=== PATIENT | female | born 1945 | race Caucasian/White ===

== ENCOUNTER → 2016-07-15 | Outpatient (REF) | payer MEDICARE ==
[~2016-07-15] MED LIST: BUPR10TASR PO; BUPR1TAB17 PO; CALCIUM PO; COUM2.5T11 PO; FLEEENE4 PR; GARLIC OIL PO; HYDR25OI PR; IBUP-1114 PO; IRON1TAB PO; LISI10TA4 PO; LOVA40TA PO; MAGNESIUM PO; MILKSUS PO; MIRA33504 PO; POTASSIUM PO; PROTANDEM PO; TYLE325T5 PO; ULTR50TA PO; VITA500C24 PO; VITATAB73 PO
[2016-07-15 18:25] LABS: MEAN CORPUSCULAR HEMOGLOBIN 32.1 pg (27.0-33.0); MEAN CORPUSCULAR HGB CONC 33.1 g/dl (32.0-36.5); MEAN CORPUSCULAR VOLUME 96.8 fl (80.0-96.0); RED CELL DISTRIBUTION WIDTH 12.4 % (11.5-14.5)
[2016-07-15 20:18] LABS: ALBUMIN 3.8 GM/DL (3.2-5.2); ALBUMIN/GLOBULIN RATIO 1.23 (1.00-1.93); ALKALINE PHOSPHATASE 104 U/L (45-117); ALT/SGPT 29 U/L (12-78); ANION GAP 7 MEQ/L (8-16); AST/SGOT 19 U/L (15-37); BILIRUBIN,TOTAL 0.8 MG/DL (0.2-1.0); BLOOD UREA NITROGEN 12 MG/DL (7-18); CALCIUM LEVEL 8.8 MG/DL (8.8-10.2); CARBON DIOXIDE LEVEL 30 MEQ/L (21-32); CHLORIDE LEVEL 105 MEQ/L (98-107); CHOLESTEROL LEVEL 209 MG/DL (<200); CREATININE FOR GFR 0.71 MG/DL (0.55-1.02); FERRITIN 35 NG/ML (8-252); GLOMERULAR FILTRATION RATE > 60.0 (>39); GLUCOSE, FASTING 98 MG/DL (83-110); PERCENT SATURATION 32.2 % (13.2-37.4); POTASSIUM SERUM 3.9 MEQ/L (3.5-5.1); SODIUM LEVEL 142 MEQ/L (136-145); TOTAL IRON BINDING CAPACITY 397 UG/DL (250-450); TOTAL PROTEIN 6.9 GM/DL (6.4-8.2); TRIGLYCERIDES LEVEL 80 MG/DL (<150)
== END ==
LOC: M SFHCCLAY 12:03
PROVIDERS: ATTEND Nurse Practitioner
DX: D50.9 Iron deficiency anemia, unspecified (principal); E78.2 Mixed hyperlipidemia

== ENCOUNTER → 2016-08-11 | Outpatient (CLI) | payer MEDICARE ==
[~2016-08-11] MED LIST changes: +MULT1TAB10 PO; +PERC5TAB6 PO; +VITA100066 PO; +VITATAB11 PO
--- NOTE | 2016-08-11 13:33 | REP ---
PA and lateral chest: Comparison is 09/04/2014. Lung wing are clear except at the posterior sulci are mildly effaced on the lateral view. This is stable and unchanged. This could represent pleural adhesions or a tiny pleural effusions. Cardiac size is normal. The gurinder and mediastinum are unremarkable. There is scoliosis convex right at the thoracolumbar junction, unchanged. There are surgical clips and now right upper quadrant. There are metallic surgical skin tamika in the anterior abdominal wall, unchanged. Impression: No interval change. Slight effacement of the posterior sulci on the lateral view (tiny pleural effusions versus pleural effusions, unchanged). Scoliosis convex right at the thoracolumbar junction. Signed by Geronimo Díaz MD 08/11/2016 01:25 P
[2016-08-11 14:12] LABS: ALBUMIN 3.6 GM/DL (3.2-5.2); ALBUMIN/GLOBULIN RATIO 1.16 (1.00-1.93); ALKALINE PHOSPHATASE 103 U/L (45-117); ALT/SGPT 27 U/L (12-78); ANION GAP 6 MEQ/L (8-16); AST/SGOT 19 U/L (15-37); BILIRUBIN,TOTAL 0.7 MG/DL (0.2-1.0); BLOOD UREA NITROGEN 10 MG/DL (7-18); CARBON DIOXIDE LEVEL 30 MEQ/L (21-32); CHLORIDE LEVEL 105 MEQ/L (98-107); CREATININE FOR GFR 0.64 MG/DL (0.55-1.02); GLOMERULAR FILTRATION RATE > 60.0 (>39); GLUCOSE, FASTING 94 MG/DL (83-110); POTASSIUM SERUM 4.1 MEQ/L (3.5-5.1); SODIUM LEVEL 141 MEQ/L (136-145); TOTAL PROTEIN 6.7 GM/DL (6.4-8.2)
[2016-08-11 14:15] LABS: INR 0.97
[2016-08-11 14:21] LABS: MEAN CORPUSCULAR HEMOGLOBIN 32.3 pg (27.0-33.0); MEAN CORPUSCULAR HGB CONC 33.6 g/dl (32.0-36.5); MEAN CORPUSCULAR VOLUME 96.3 fl (80.0-96.0)
--- NOTE | 2016-08-11 21:56 | ECGEPIP ---
Stationary ECG Study [facility] Test Date: 2016-08-11 Pat Name: KIKO CORNEJO Department: Room: - Gender: F Senior Database Engineer: RF : [id number] Requested By: Osmin Tam Order Number: [id number] Reading MD: Vinicio Collado Measurements Intervals [place] Rate: 61 P: 37 NC: 173 QRS: 47 QRSD: 99 T: 51 QT: 395 QTc: 400 Interpretive Statements SINUS RHYTHM MODERATE ST DEPRESSION T waves in inferior leads normalized when compared to tracing from 09-04-14 Electronically Signed On 08-11-2016 21:55:46 EDT by Vinicio Collado
== END ==
LOC: M ADMPAT 11:02
PROVIDERS: ATTEND Orthopaedic Surgery
DX: Z01.818 Encounter for other preprocedural examination (principal); M17.11 Unilateral primary osteoarthritis, right knee; Z79.01 Long term (current) use of anticoagulants

== ENCOUNTER 2016-08-18 12:03 | Inpatient (IN) | payer MEDICARE ==
[2016-08-11 11:34] VITALS: BP 110/64
--- NOTE | 2016-08-14 11:10 | HPE ---
DATE OF ANTICIPATED ADMISSION: 08/18/2016 ATTENDING PHYSICIAN: Dr. Osmin Tam. CHIEF COMPLAINT: Right knee pain and stiffness. HISTORY: Patient is a pleasant 71-year-old female presenting with persistent right knee pain and stiffness. She has failed to improve with conservative measures. She continues to have pain with weight bearing activities and activities of daily living. She has consented for elective right total knee arthroplasty with Dr. Tam. Patient's primary care medical clearance with Dr. Jack was received and reviewed during appointment. PAST MEDICAL HISTORY: Iron deficiency anemia. Hypertension. Hyperlipidemia. Depression. PAST SURGICAL HISTORY: Bilateral carpal tunnel release. Right knee arthroscopy. Left total knee arthroplasty. Right foot surgery. Conization of the cervix. Tonsillectomy. Gastric stapling. CURRENT MEDICATIONS: - aspirin 81 mg daily - lisinopril 10 mg daily - lovastatin 40 mg daily - Wellbutrin 75 mg daily - hydrocortisone cream - iron supplements - vitamin D supplements - vitamin B complex ALLERGIES: PENICILLIN. SOCIAL HISTORY: Patient is a current smoker. Uses 5 cigarettes or less per day. She does not use alcohol. REVIEW OF SYSTEMS: Patient denies fevers, chills, nausea, vomiting or diarrhea. She denies any chest pain, shortness of breath, lightheadedness or headache. She denies any recent upper respiratory or urinary tract infection symptoms. She does have continued pain in the right knee with weightbearing activities. EXAM: Well nourished, well developed female in no apparent distress. Heart: Regular rate and rhythm. Lungs: Clear to auscultation bilaterally. Abdomen: Bowel sounds are present. Abdomen is soft and nontender to palpation. Neck: Supple without lymphadenopathy or jugular venous distention. Musculoskeletal: Inspection of the right knee revealed no gross abnormalities. There is tenderness to palpation along the medial joint line. Patient does have essentially full motion of the right knee with 5/5 strength of the right lower extremity. No hip irritability was elicited with range of motion. Her calf is soft, nontender to palpation with no palpable cords noted. Distally she is neurovascularly intact. Vital signs: Height 4 feet 11-1/4 inches, weight 157 pounds, temperature 98, blood pressure 128/68, heart rate 76, respirations 16. LABORATORY DATA: Chest x-ray: No interval change. Slight effacement of the posterior sulci on the lateral view. Tiny pleural effusions versus purpura effusions, unchanged. Scoliosis convex right at the thoracolumbar junction. EKG: Sinus rhythm. Moderate ST depression. T waves from inferior leads normalized when compared to previous tracing. Comprehensive metabolic profile: Fasting glucose 94, BUN 10, creatinine for glomerular filtration rate 0.64, glomerular filtration rate greater than 60. Sodium 141, potassium 4.1, chloride 105, carbon dioxide 30, anion gap decreased 6, calcium 9.0, AST 19, ALT 27, alkaline phosphatase 103, total bilirubin 0.7, total protein 6.7, albumin 3.6, albumin globulin ratio 1.16. Complete blood count: WBC 7.0, WBC 4.70, hemoglobin 15.1, hematocrit 45.2, platelets 259. Erythrocyte sedimentation rate 30, prothrombin time 13, INR 0.97. Urine analysis is negative with no growth noted on urine culture. Nasal and sinus culture show normal david. IMPRESSION: Right knee osteoarthritis with x-rays notable for end stage degenerative changes. PLAN: Patient has consented for a elective right total knee arthroplasty with Dr. Tam. LOU
[~2016-08-18] VITALS: Ht 148.6 cm; Wt 73.0 kg
[~2016-08-18 12:03] MED LIST changes: -PERC5TAB6 PO
[2016-08-18] MEDS ORDERED: LR 1,000 ML IV ONE (12:15)
[2016-08-18] MEDS ORDERED: CLINDAMYCIN 600 MG in APPROPRIATE DILUENT 1 EA IV ONE (12:15)
[2016-08-18] MEDS ORDERED: fentaNYL 100 MCG/2 ML INJECTION (J3010) As Ordered ONE ×4 (12:51→15:00)
[2016-08-18] MEDS ORDERED: MIDAZOLAM INJ 2 MG/2 ML VIAL (J2250) As Ordered ONE ×2 (12:51→13:38)
[2016-08-18] MEDS ORDERED: BUPIVACAINE HCL 0.25% 30 ML VIAL As Ordered ONE (13:00)
[2016-08-18] MEDS ORDERED: EPINEPHrine INJ 1 MG/ML 1ML AMP As Ordered ONE (13:01)
[2016-08-18] MEDS ORDERED: CLINDAMYCIN INJ 900MG/6ML VIAL As Ordered ONE (13:01)
[2016-08-18] MEDS ORDERED: TRANEXAMIC ACID 100 MG/ML 10ML VIAL As Ordered ONE (13:23)
[2016-08-18] MEDS ORDERED: fentaNYL 100 MCG/2 ML INJECTION (J3010) IV ONE (14:00)
[2016-08-18] MEDS ORDERED: MIDAZOLAM INJ 2 MG/2 ML VIAL (J2250) IV ONE (14:00)
--- NOTE | 2016-08-18 14:14 | IPN ---
DATE OF SERVICE: 08/18/2016 The patient seen and examined. She wished to go ahead with a right knee replacement. She does have some valgus alignment, so I would suggest a posterior stabilized knee, and I believe that is what Dr. Case did on the other side. She wished to go ahead with a right total knee arthroplasty. She understands the nature of the procedure, the risks of bleeding, infection, damage to nerves and vessels, persistent pain, wear loosening, blood clots, medical problems, , among others. She understands that I use a DePuy knee system, which is likely different than the component Dr. Case used, and she wished to proceed. A medical clearance was obtained.
[2016-08-18] MEDS ORDERED: ONDANSETRON 4MG/2ML VIAL (J2405) As Ordered ONE ×2 (15:17→16:19)
[2016-08-18] MEDS ORDERED: dexameTHASONE 4 MG/ML 1ML VIAL (J1100) As Ordered ONE (15:17)
[2016-08-18] MEDS ORDERED: MORPHINE 1MG/ML IN 0.9% NACL 100ML IV BAG As Ordered ONE (15:50)
[2016-08-18] MEDS ORDERED: ONDANSETRON 4MG/2ML VIAL (J2405) IV PRN ×3 (16:30→16:45)
[2016-08-18] MEDS ORDERED: LR 1,000 ML IV SCH ×2 (16:30)
[2016-08-18] MEDS ORDERED: ACETAMINOPHEN TAB 650MG DOSE (2X325MG) PO PRN (16:30)
[2016-08-18] MEDS ORDERED: FLEET ENEMA PR PRN (16:30)
[2016-08-18] MEDS ORDERED: fentaNYL 100 MCG/2 ML INJECTION (J3010) IV PRN (16:30)
[2016-08-18] MEDS ORDERED: MORPHINE 1MG/ML IN 0.9% NACL 100ML IV BAG IV PRN (16:45)
[2016-08-18] MEDS ORDERED: NALBUPHINE HCL 10 MG/ML AMP (J2300) IV PRN (16:45)
[2016-08-18] MEDS ORDERED: EPIDURAL/PCA KEYS XX PRN (16:45)
[2016-08-18] MEDS ORDERED: PATIENT IS CURRENTLY ON AN ON-Q PAIN BUSTER PAIN RELIEF SYSTEM XX SCH (16:45)
[2016-08-18] MEDS ORDERED: NALOXONE INJ 0.4 MG/1 ML VIAL (J2310) IV PRN (16:45)
[2016-08-18] MEDS ORDERED: diphenhydrAMINE INJ 50MG/ML VIAL (J1200) IV PRN (16:45)
[2016-08-18 17:00] VITALS: BP 125/81
[2016-08-18 17:30] VITALS: BP 177/90
[2016-08-18 18:30] VITALS: BP 161/88
[2016-08-18] MEDS ORDERED: WARFARIN SOD 5 MG TAB PO ONE (18:45)
[2016-08-18 19:30] VITALS: BP 124/70
--- NOTE | 2016-08-18 19:55 | CR.PDOC ---
[facility] Consultation Consultation HOSPITALIST CONSULT NOTE Date of consult: 08/18/2016 Referring Provider: Dr. Tam PCP: Daisy Napier NP at [place] Reason for Consult: Medical management HPI: 71-year-old female with hypertension, hyperlipidemia, iron deficiency anemia, depression/seasonal affective disorder who underwent right total knee arthroplasty today with Dr. Tam. She is seen postoperatively. She denies any chest pain or difficulty breathing. She does however note that initially after the surgery she was nauseated, but she states that she feels well now and was able to eat dinner without any difficulty. Past medical history: Hypertension, hyperlipidemia, iron deficiency anemia, depression/seasonal affective disorder Past surgical history: Bilateral carpal tunnel release, bilateral total knee arthroplasty, right foot surgery, conization of the cervix, tonsillectomy, gastric stapling, multiple D&Cs Family history: Depression, hypertension, hyperlipidemia Social history: The patient states that she smokes socially several times weekly. She has been a recreational marijuana user since she was 21 years old. She does not drink any alcohol. Allergies: Penicillin, tape Review of systems: General: Negative for fever and chills Eyes: Negative for vision changes and ocular discharge ENT: Negative for sore throat and nose bleed Cardiovascular: Negative for chest pain and palpitations Respiratory: Negative for cough and shortness of breath GI: Positive for nausea, negative for vomiting, diarrhea, constipation Musculoskeletal: Positive for chronic back pain Skin: Negative for rash Neuro: Negative for headache, dizziness, numbness, tingling Psych: Negative for depression and suicidal ideation Endocrine: Negative for polyuria : Negative for dysuria Heme: Negative for bleeding Home meds: See below Physical exam: Vital signs: Vital Sign - Last 24 Hours 08/18/16 08/18/16 08/18/16 08/18/16 12:40 12:58 13:00 13:05 Temp 99.5 Pulse 72 62 61 60 Resp 18 18 18 18 B/P (MAP) 149/70 (96) 134/59 (84) 118/62 (80) 116/63 (80) Pulse Ox 94 98 98 97 O2 Delivery Room Air Nasal Cannula Nasal Cannula Nasal Cannula O2 Flow Rate 2 2 3 08/18/16 08/18/16 08/18/16 08/18/16 13:10 13:15 13:20 13:25 Pulse 59 58 59 60 Resp 16 16 16 16 B/P (MAP) 109/61 (77) 108/61 (77) 113/65 (81) 102/56 (71) Pulse Ox 98 97 97 97 O2 Delivery Nasal Cannula Nasal Cannula Nasal Cannula Nasal Cannula O2 Flow Rate 3 3 3 3 08/18/16 08/18/16 08/18/16 08/18/16 13:30 13:35 13:45 14:00 Pulse 62 57 55 57 Resp 16 16 16 16 B/P (MAP) 113/61 (78) 101/58 (72) 102/59 (73) 107/56 (73) Pulse Ox 98 97 98 98 O2 Delivery Nasal Cannula Nasal Cannula Nasal Cannula Nasal Cannula O2 Flow Rate 3 3 3 3 08/18/16 08/18/16 08/18/16 08/18/16 14:10 15:57 16:08 16:21 Temp 97.6 97.5 Pulse 54 74 66 70 Resp 16 16 16 16 B/P (MAP) 107/57 (74) 170/74 (106) 177/69 (105) 190/88 (122) Pulse Ox 98 98 99 99 O2 Delivery Nasal Cannula Nasal Cannula Nasal Cannula Nasal Cannula O2 Flow Rate 3 3 3 3 08/18/16 08/18/16 08/18/16 08/18/16 16:32 16:50 17:00 17:30 Temp 97.6 98.2 96.7 Pulse 64 60 59 65 Resp 16 16 18 14 B/P (MAP) 179/91 (120) 155/78 (103) 125/81 (96) 177/90 (119) Pulse Ox 100 99 98 100 O2 Delivery Nasal Cannula Nasal Cannula Nasal Cannula Nasal Cannula O2 Flow Rate 3 3 2.0 2.0 08/18/16 18:30 Temp 97.1 Pulse 66 Resp 13 B/P (MAP) 161/88 (112) Pulse Ox 99 O2 Delivery Nasal Cannula O2 Flow Rate 2.0 Gen.: awake, alert, no acute distress Eyes: Extraocular movements intact, normal sclera ENT: Moist mucous membranes Cardiovascular: RRR, no murmurs rubs or gallops Lungs: clear to auscultation bilaterally, no rales, rhonchi, or wheeze Abdomen: Soft, NT/ND, normal BS Extremities: Intact pedal pulses bilaterally Neuro: alert and oriented 3, normal speech, no focal deficits Psych: Normal mood with congruent affect Labs and radiology: See below None to review Assessment and plan: 71-year-old female with hypertension, hyperlipidemia, iron deficiency anemia, depression/seasonal affective disorder who underwent right total knee arthroplasty today with Dr. Tam. We have been consulted for medical management. 1. Hypertension: Continue home YVETTE inhibitor 2. Hyperlipidemia: Continue home statin. 3. Depression/seasonal affective disorder: Continue home Wellbutrin. 4. Iron deficiency anemia: We will check a hemoglobin in the morning DVT prophylaxis: As per her surgical team Thank you for this consult. We will continue to follow along with you. Dr. Kelley and the family medicine team will assume care in the morning. Vital Signs/I&O Vital Signs Date Time Temp Pulse Resp B/P (MAP) Pulse Ox O2 Delivery O2 Flow Rate FiO2 08/18/16 18:30 97.1 66 13 161/88 (112) 99 Nasal Cannula 2.0 Allergies Coded Allergies: TAPE (Unverified Allergy, Intermediate, rash, 08/18/16) Penicillins (Verified Allergy, Unknown, 08/18/16) Home Medications Scheduled (Iron) 45 Mg Tab, 45 MG PO DAILY, (Reported) B1/B2/B3/B5/B6 (Vitamin B Complex) 1 Tab Tab, 1 TAB PO DAILY, (Reported) Bupropion Hcl (Wellbutrin Sr) 100 Mg Tabsr, 75 MG PO BID, (Reported) Cholecalciferol (Vitamin D) 1,000 Unit Tab, 1,000 UNIT PO DAILY, (Reported) Lisinopril (Lisinopril) 10 Mg Tab, 10 MG PO DAILY, (Reported) Lovastatin (Lovastatin) 40 Mg Tab, 40 MG PO DAILY, (Reported) Multivitamins (Multivitamin Adults) 1 Tab Tab, 1 TAB PO DAILY, (Reported) Scheduled PRN Acetaminophen (Tylenol) 325 Mg Tab, 650 MG PO Q4HP PRN for TEMP, (Reported) Hydrocortisone (Hydrocortisone 2.5%) 30 Gm Oint, 0 NV for HEMORRHOIDS, (Reported ) ELVA VALDEZ Aug 18, 2016 19:55
[2016-08-18 20:30] VITALS: BP 131/60
[2016-08-18] MEDS: buPROPion 75 MG TAB PO SCH (20:41)
[2016-08-18] MEDS ORDERED: WARFARIN SOD 5 MG TAB PO SCH (21:00)
[2016-08-18 21:30] VITALS: BP 120/67
[2016-08-18] MEDS: CLINDAMYCIN 600 MG in APPROPRIATE DILUENT 1 EA IV SCH (22:52)
[2016-08-19 01:30] VITALS: BP 115/59
[2016-08-19 05:30] VITALS: BP 131/65
[2016-08-19] MEDS: CLINDAMYCIN 600 MG in APPROPRIATE DILUENT 1 EA IV SCH (06:17)
[2016-08-19] MEDS ORDERED: ONDANSETRON 4 MG TAB (S0181) PO PRN (06:45)
[2016-08-19 06:50] LABS: BASO % 0.1 % (0.0-1.0); EOS % 0.3 % (0.0-3.0); LARGE UNSTAINED CELL # 0.1 K/mm3 (0.0-0.4); LARGE UNSTAINED CELL % 0.9 % (0.0-4.0); LYMPH # 1.2 K/mm3 (1.5-4.5); LYMPH % 10.9 % (24.0-44.0); MEAN CORPUSCULAR HEMOGLOBIN 31.7 pg (27.0-33.0); MEAN CORPUSCULAR HGB CONC 33.3 g/dl (32.0-36.5); MEAN CORPUSCULAR VOLUME 95.4 fl (80.0-96.0); MONO # 0.6 K/mm3 (0.0-0.8); MONO % 5.5 % (0.0-5.0); NEUTROPHILS # 8.7 K/mm3 (1.8-7.7); NEUTROPHILS % 82.3 % (36.0-66.0); PLATELET COUNT, AUTOMATED 184 k/mm3 (150-450); RED CELL DISTRIBUTION WIDTH 12.2 % (11.5-14.5); WHITE BLOOD COUNT 10.6 K/mm3 (4.0-10.0)
--- NOTE | 2016-08-19 06:50 | RO ---
DATE OF PROCEDURE: 08/18/2016 PREOPERATIVE DIAGNOSIS: Right knee osteoarthritis. POSTOPERATIVE DIAGNOSIS: Right knee osteoarthritis. PROCEDURE: Right total knee arthroplasty using a PFC rotating platform posterior stabilized size 3 femur, size 3 tibia tray, 10 polyethylene, 32 patellar button. SURGEON: Dr. Osmin Tam. EXERCISE INSTRUCT: Reuben Davidson. ANESTHESIA: Spinal. ESTIMATED BLOOD LOSS: Less than 50. COMPLICATIONS: None. INDICATIONS: This is a 71-year-old woman who has had some gradually worsening right knee pain. She had a previous left knee replacement done by Dr. Case and was happy with that and she wished to go ahead and get the right knee replaced. She is having pain to the point where she could not function with regular activities. She had failed conservative management. X-ray showed significant arthritis. She understood the nature of this, the risk of bleeding, infection, damage to nerves, vessels, persistent pain, wear, loosening, blood clots, medical problems, among others. PROCEDURE: The patient was taken to the operating room and placed in supine position after spinal anesthesia was induced. She had had a preoperative block. We prepped and draped the right lower extremity in the usual fashion. When I tested her spinal, she actually felt some pain so she was put to sleep at that point. Time-out had been performed. I made a longitudinal incision over the anterior aspect of the knee and sharp dissection was carried down to subcutaneous tissue. I performed a medial parapatellar arthrotomy per routine, everted the patella and flexed the knee up. She had extensive arthritis on the end of her femur primarily with significant osteophytes. She had significant wear on her trochlea and significant osteophytes on the end of her femur as well, and she also had a fairly valgus femur. I used the canal initiating reamer followed by the intramedullary guide set at 7 degrees of valgus and 10 mm cut and this was pinned in place by the assistant cook. The distal femoral cut was made. I then sized the femur to be a 3. I then put the external rotation block, put the pins in place. It was noted that her bone was really quite thin. The 4-in-1 cutting block was then secured to the femur and remaining four cuts were made. At this point, the PCL and the ACL had been removed with the cautery, controlling hemostasis with cautery. I put the posterior retractor and then put the tibial alignment guide on and pinned this in place at the appropriate amount of posterior slope and valgus. This was secured down and the pin holes were placed 10 mm off the high side which seemed to be the most appropriate thickness of cut. The excess bone was removed. We then used this tissue manometer technician, used it to remove soft tissues and osteophytes from either side of the knee. We had protected the soft tissues at all times during saw cuts. The box cut was then made and I elected to go with posterior stabilized because of her significant valgus and I felt it would be easier to balance her tissues. The box cutting block was then secured to the end of the femur and the remaining three cuts were made with the oscillating saw. I then placed the actual femoral component which fit very well. The size 3 posterior stabilized and prepared the tibia. The size 3 tray fit very nicely. This was pinned in place, broached and drilled and trial components were used. I had used the 10 spacer block prior to this with the components out and that seemed to have excellent fit in flexion/extension, excellent alignment and excellent stability. Slit size 10 polyethylene was inserted with posterior stabilized component and put the knee through a range of motion. There was excellent stability, excellent alignment, very pleased with the soft tissue balance and position of the components. I then removed osteophytes from around the patella and freehand cut the patella removing about 7 mm of bone and then sized it to be a 32 button which was then drilled and then placed as a trial, put the knee through range of motion. It tended to track a little more laterally than I would like so I did a mild lateral release of the retinaculum and this made the patella track quite normally. I then removed the trial components. The assistant cook prepared the bone cement in a modern technique. I made sure all remaining osteophytes were removed. I irrigated copiously and dried the bony surfaces, cemented on the tibial tray, cemented on the femoral component and removed excess bone cement. Those fit very nicely. I then put the 10 polyethylene posterior stabilized by size 3 and reduced the knee, put the knee out into extension and the patella was cemented in place, held in place with a clamp. Copious irrigation was again performed as I had multiple times prior to this. I also placed the TXA solution. I closed the deep layer with interrupted #1 Vicryl sutures realigning the soft tissues. I then removed the patellar clamp and made the remaining closure with running Stratafix suture in each direction starting at the midportion. The assistant cook and I worked in opposite directions. I then put the knee through range of motion. Again I was very pleased with the watertight closure and the stability and alignment of the knee. I irrigated, closed subcu with #2-0 Vicryl, skin with tamika. We did place a PainBuster catheter through the superolateral aspect of the knee and primed that with 10 mL of Marcaine. This was secured to the side of the thigh in the usual fashion. A sterile dressing was applied. Tourniquet was deflated. She was taken to recovery room in stable condition. There were no known complications. The plan will be routine postop. The assistant cook was instrumental in holding retractors and assisting with closure and mixing the bone cement.
[2016-08-19 06:54] LABS: INR 1.16
[2016-08-19 07:16] LABS: ANION GAP 5 MEQ/L (8-16); BLOOD UREA NITROGEN 6 MG/DL (7-18); CALCIUM LEVEL 8.3 MG/DL (8.8-10.2); CARBON DIOXIDE LEVEL 30 MEQ/L (21-32); CHLORIDE LEVEL 103 MEQ/L (98-107); CREATININE FOR GFR 0.59 MG/DL (0.55-1.02); GLOMERULAR FILTRATION RATE > 60.0 (>39); GLUCOSE, FASTING 117 MG/DL (83-110); MAGNESIUM LEVEL 1.8 MG/DL (1.8-2.4); SODIUM LEVEL 138 MEQ/L (136-145)
[2016-08-19] MEDS: MIRALAX *UNIT DOSE* 17GM PACKET PO SCH (09:00)
--- NOTE | 2016-08-19 09:22 | REP ---
AP AND LATERAL RIGHT KNEE, TWO VIEWS: HISTORY: Knee replacement. The patient is status post right total knee replacement. There is no acute fracture or dislocation. A small amount of subcutaneous air and surgical tamika are present in the overlying soft tissue. IMPRESSION: The patient is status post right total knee replacement. There is anatomic alignment. Signed by Richard Ibrahim MD 08/19/2016 09:53 A
[2016-08-19] MEDS: LISINOPRIL 10 MG TAB PO SCH (09:47)
[2016-08-19] MEDS: MULTIVITAMINS/MINERALS THERAP 1 TAB PO SCH (09:47)
[2016-08-19] MEDS: SIMVASTATIN 40 MG TAB PO SCH (09:47)
[2016-08-19] MEDS: buPROPion 75 MG TAB PO SCH ×2 (09:47→20:02)
[2016-08-19] MEDS: MOM 30ML SUSPENSION UDC PO SCH (09:48)
[2016-08-19] MEDS: SENOKOT S TAB PO SCH ×2 (09:48→20:02)
[2016-08-19 10:00] VITALS: BP 131/63
[2016-08-19] MEDS: PERCOCET 5MG/325MG TAB PO PRN ×3 (10:49→20:02)
--- NOTE | 2016-08-19 12:09 | IPNPDOC ---
Subjective Date Seen The patient was seen on 08/19/16. Subjective Chief Complaint/HPI The patient is a 71-year-old female admitted with a reason for visit of Right Knee Arthritis. Events since last encounter Med consult for RIGHT TKA. FOllows with Daisy parnell NP. denies c/o. Pulmonary: Denies: Dyspnea, Cough Cardiovascular: Denies: Chest Pain, Palpitations, Orthopnea, Paroxysmal Noc. Dyspnea, Lt Headedness Objective Physical Examination General Exam: Positive: Alert, No Acute Distress Eye Exam: Positive: PERRLA, Conjunctiva & lids normal, EOMI, Negative: Sclera icteric Neck Exam: Positive: Supple, Negative: JVD, thyromegaly Chest Exam: Positive: Clear to auscultation, Normal air movement Heart Exam: Positive: Rate Normal, Regular Rhythm, Normal S1, Normal S2, Negative: Murmurs, Rubs Abdomen Exam: Positive: Normal bowel sounds, Soft, Negative: Tenderness, Hepatospenomegaly Female Exam: Positive: Nl Ext Genitalia, Negative: Lesions, Discharge, Odor, Tenderness Skin Exam: Positive: Nl turgor and temperature, Negative: Rash, Breakdown Assessment /Plan Problems (1) Osteoarthritis of right knee Problem Specific Plan: Consult Specialist, Monitor Clinically Problem Text: NCOG following, managing warfarin. (2) HTN (hypertension) Status: Chronic Response to Treatment: Stable Problem Specific Plan: Monitor Clinically Problem Text: on home dose of Lisinopril. BP stable. (3) Hyperlipidemia Status: Chronic Response to Treatment: Stable Problem Specific Plan: Monitor Clinically (4) Chronic depression not affecting current episode of care Status: Chronic Response to Treatment: Stable Problem Specific Plan: Monitor Clinically Problem Text: home dose of Bupropion (5) Anemia Problem Text: hx of iron deficiency anemia. Tolerates her own iron better. will order medication. Plan/VTE VTE Prophylaxis Ordered?: Yes (warfarin) VS, I&O, 24H, Fishbone Vital Signs/I&O Vital Signs Date Time Temp Pulse Resp B/P (MAP) Pulse Ox O2 Delivery O2 Flow Rate FiO2 08/19/16 10:49 16 08/19/16 10:00 98.5 66 131/63 (85) 95 Room Air 08/19/16 01:30 2.0 I&O- Last 24 Hours up to 6 AM 08/19/16 06:00 Intake Total 3490 ml Output Total 1450 ml Balance 2040 ml Laboratory Data 24H LABS Laboratory Tests 2 08/19/16 06:36: White Blood Count 10.6H, Red Blood Count 3.66L, Hemoglobin 11.6L, Hematocrit 35.0L, Mean Corpuscular Volume 95.4, Mean Corpuscular Hemoglobin 31.7, Mean Corpuscular Hemoglobin Concent 33.3, Red Cell Distribution Width 12.2, Platelet Count 184, Neutrophils (%) (Auto) 82.3H, Lymphocytes (%) (Auto) 10.9L, Monocytes (%) (Auto) 5.5H, Eosinophils (%) (Auto) 0.3, Basophils (%) (Auto) 0.1 , Neutrophils # (Auto) 8.7H, Lymphocytes # (Auto) 1.2L, Monocytes # (Auto) 0.6, Eosinophils # (Auto) 0.0, Basophils # (Auto) 0.0, Large Unclassified Cells % 0.9 , Large Unclassified Cells # 0.1, Prothrombin Time 14.9H, Prothromb Time International Ratio 1.16, Anion Gap 5L, Glomerular Filtration Rate > 60.0, Blood Urea Nitrogen 6L, Creatinine 0.59, Sodium Level 138, Potassium Level 4.0, Chloride Level 103, Carbon Dioxide Level 30, Calcium Level 8.3L, Magnesium Level 1.8 CBC/BMP Laboratory Tests 08/19/16 06:36 Red Blood Count 3.66 L, Mean Corpuscular Volume 95.4, Mean Corpuscular Hemoglobin 31.7, Mean Corpuscular Hemoglobin Concent 33.3, Red Cell Distribution Width 12.2, Neutrophils (%) (Auto) 82.3 H, Lymphocytes (%) (Auto) 10.9 L, Monocytes (%) (Auto) 5.5 H, Eosinophils (%) (Auto) 0.3, Basophils (%) ( Auto) 0.1, Neutrophils # (Auto) 8.7 H, Lymphocytes # (Auto) 1.2 L, Monocytes # ( Auto) 0.6, Eosinophils # (Auto) 0.0, Basophils # (Auto) 0.0, Calcium Level 8.3 L Kacey Schaefer [facility] Aug 19, 2016 12:09
[2016-08-19] MEDS ORDERED: ROPIvacaine 0.5% 30 ML INJECTION (J2795) ONE (13:43)
[2016-08-19 14:00] VITALS: BP 123/59
[2016-08-19] MEDS: VITAMIN B COMPLEX/VIT C CAP PO SCH (14:16)
[2016-08-19] MEDS: VITAMIN D 1,000 INTERNATIONAL UNITS TABLET PO SCH (14:16)
[2016-08-19] MEDS ORDERED: WARFARIN SOD 5 MG TAB PO ONE (17:00)
[2016-08-19 22:00] VITALS: BP 130/60
[2016-08-20] MEDS: PERCOCET 5MG/325MG TAB PO PRN ×4 (01:50→22:16)
[2016-08-20 06:00] VITALS: BP 132/71
[2016-08-20 06:58] LABS: BASO % 0.4 % (0.0-1.0); EOS # 0.1 K/mm3 (0.0-0.50); EOS % 1.8 % (0.0-3.0); LARGE UNSTAINED CELL # 0.1 K/mm3 (0.0-0.4); LARGE UNSTAINED CELL % 1.6 % (0.0-4.0); LYMPH # 1.4 K/mm3 (1.5-4.5); LYMPH % 18.1 % (24.0-44.0); MEAN CORPUSCULAR HEMOGLOBIN 32.4 pg (27.0-33.0); MEAN CORPUSCULAR HGB CONC 33.5 g/dl (32.0-36.5); MEAN CORPUSCULAR VOLUME 96.6 fl (80.0-96.0); MONO # 0.6 K/mm3 (0.0-0.8); MONO % 7.8 % (0.0-5.0); NEUTROPHILS % 70.3 % (36.0-66.0); PLATELET COUNT, AUTOMATED 185 k/mm3 (150-450); RED CELL DISTRIBUTION WIDTH 12.2 % (11.5-14.5)
[2016-08-20 07:01] LABS: INR 1.56
[2016-08-20 07:13] LABS: ANION GAP 4 MEQ/L (8-16); BLOOD UREA NITROGEN 6 MG/DL (7-18); CALCIUM LEVEL 8.2 MG/DL (8.8-10.2); CARBON DIOXIDE LEVEL 31 MEQ/L (21-32); CHLORIDE LEVEL 99 MEQ/L (98-107); CREATININE FOR GFR 0.55 MG/DL (0.55-1.02); GLOMERULAR FILTRATION RATE > 60.0 (>39); GLUCOSE, FASTING 101 MG/DL (83-110); MAGNESIUM LEVEL 2.1 MG/DL (1.8-2.4); POTASSIUM SERUM 3.8 MEQ/L (3.5-5.1); SODIUM LEVEL 134 MEQ/L (136-145)
[2016-08-20] MEDS ORDERED: PERC5TAB6 PO (08:42)
[2016-08-20] MEDS ORDERED: COUM2.5T11 PO (08:42)
[2016-08-20] MEDS ORDERED: [UNRECOGNIZED DRUG - OTHER] PO SCH (09:00)
[2016-08-20] MEDS: SENOKOT S TAB PO SCH ×2 (09:00→22:16)
[2016-08-20] MEDS: MIRALAX *UNIT DOSE* 17GM PACKET PO SCH (09:00)
[2016-08-20] MEDS: MOM 30ML SUSPENSION UDC PO SCH (09:00)
[2016-08-20] MEDS: MULTIVITAMINS/MINERALS THERAP 1 TAB PO SCH (09:22)
[2016-08-20] MEDS: SIMVASTATIN 40 MG TAB PO SCH (09:22)
[2016-08-20] MEDS: VITAMIN B COMPLEX/VIT C CAP PO SCH (09:22)
[2016-08-20] MEDS: VITAMIN D 1,000 INTERNATIONAL UNITS TABLET PO SCH (09:23)
[2016-08-20] MEDS: buPROPion 75 MG TAB PO SCH ×2 (09:23→22:16)
[2016-08-20] MEDS: LISINOPRIL 10 MG TAB PO SCH (09:23)
[2016-08-20 14:00] VITALS: BP 118/57
[2016-08-20] MEDS ORDERED: WARFARIN SOD 5 MG TAB PO ONE (17:00)
[2016-08-20 22:00] VITALS: BP 139/67
[2016-08-21] MEDS: PERCOCET 5MG/325MG TAB PO PRN ×3 (05:04→19:34)
[2016-08-21 06:00] VITALS: BP 112/56
[2016-08-21] MEDS ORDERED: MAGNESIUM CITRATE 300 ML BTL PO ONE (07:15)
[2016-08-21 07:28] LABS: BASO % 0.7 % (0.0-1.0); EOS # 0.3 K/mm3 (0.0-0.50); EOS % 4.1 % (0.0-3.0); LARGE UNSTAINED CELL # 0.2 K/mm3 (0.0-0.4); LARGE UNSTAINED CELL % 2.6 % (0.0-4.0); LYMPH # 1.3 K/mm3 (1.5-4.5); LYMPH % 17.6 % (24.0-44.0); MEAN CORPUSCULAR HEMOGLOBIN 32.5 pg (27.0-33.0); MEAN CORPUSCULAR VOLUME 95.5 fl (80.0-96.0); MONO # 0.5 K/mm3 (0.0-0.8); MONO % 6.6 % (0.0-5.0); NEUTROPHILS % 68.5 % (36.0-66.0); PLATELET COUNT, AUTOMATED 204 k/mm3 (150-450); WHITE BLOOD COUNT 7.3 K/mm3 (4.0-10.0)
[2016-08-21 07:29] LABS: INR 1.67
[2016-08-21 08:03] LABS: ANION GAP 5 MEQ/L (8-16); BLOOD UREA NITROGEN 6 MG/DL (7-18); CARBON DIOXIDE LEVEL 30 MEQ/L (21-32); CHLORIDE LEVEL 100 MEQ/L (98-107); CREATININE FOR GFR 0.58 MG/DL (0.55-1.02); GLOMERULAR FILTRATION RATE > 60.0 (>39); GLUCOSE, FASTING 111 MG/DL (83-110); MAGNESIUM LEVEL 2.2 MG/DL (1.8-2.4); POTASSIUM SERUM 4.5 MEQ/L (3.5-5.1); SODIUM LEVEL 135 MEQ/L (136-145)
[2016-08-21] MEDS: VITAMIN D 1,000 INTERNATIONAL UNITS TABLET PO SCH (08:47)
[2016-08-21] MEDS: SIMVASTATIN 40 MG TAB PO SCH (08:47)
[2016-08-21] MEDS: VITAMIN B COMPLEX/VIT C CAP PO SCH (08:47)
[2016-08-21] MEDS: buPROPion 75 MG TAB PO SCH ×2 (08:47→19:33)
[2016-08-21 08:48] VITALS: BP 112/56
[2016-08-21] MEDS: LISINOPRIL 10 MG TAB PO SCH (08:48)
[2016-08-21] MEDS ORDERED: [UNRECOGNIZED DRUG - OTHER] PO SCH (09:00)
[2016-08-21] MEDS ORDERED: PREVNAR 13 VACCINE SYRINGE (CPT CODE:90670) IM ONE (09:00)
[2016-08-21] MEDS: MIRALAX *UNIT DOSE* 17GM PACKET PO SCH (09:00)
[2016-08-21] MEDS: MOM 30ML SUSPENSION UDC PO SCH (09:00)
[2016-08-21] MEDS: SENOKOT S TAB PO SCH ×2 (09:00→20:29)
[2016-08-21 14:00] VITALS: BP 116/77
[2016-08-21] MEDS ORDERED: WARFARIN SOD 3 MG TAB PO ONE (17:00)
[2016-08-21 22:00] VITALS: BP 132/65
[2016-08-22] MEDS: PERCOCET 5MG/325MG TAB PO PRN ×2 (00:02→05:34)
[2016-08-22 06:00] VITALS: BP 140/72
--- NOTE | 2016-08-26 21:46 | DSES ---
DATE OF ADMISSION: 08/18/2016 DATE OF DISCHARGE: 08/22/2016 ADMISSION DIAGNOSIS: Right knee pain. OTHER DIAGNOSES: Iron deficiency anemia, hypertension, hyperlipidemia and depression. DISCHARGE DIAGNOSIS: Right knee arthritis status post right total knee arthroplasty. OPERATION PERFORMED: Right total knee arthroplasty. HOSPITAL COURSE: The patient was admitted on the day of surgery and underwent right knee arthroplasty which was uneventful. She did well in the postoperative period and her hospital course was without complications. The patient was up with physical therapy per the protocol and her pain was controlled. On the day of discharge the patient was doing well. She was weightbearing as tolerated, will move her knee to prevent stiffness, will use adjusted dose Coumadin and thromboembolic deterrent (TOSHA) stockings for 30 days postoperatively for deep venous thrombosis (DVT) prophylaxis and she will use oral medications for pain control. Also she will follow in the office in 2 weeks for staple removal, will resume preoperative medications and diet and she was given instructions for wound monitoring and activity limitations. Please refer to the medical record for further detail.
== END 2016-08-22 06:25 | DRG 470 ==
LOC: M OR 12:03 → M MS5PR 17:05
PROVIDERS: ADMIT Orthopaedic Surgery; ATTEND Orthopaedic Surgery
PROC: 0SRC0J9 Replacement of Right Knee Joint with Synthetic Substitute, Cemented, Open Approach (ICD-10-PCS; principal; 2016-08-18 15:15)
DX: M17.11 Unilateral primary osteoarthritis, right knee (principal); F33.9 Major depressive disorder, recurrent, unspecified; D50.9 Iron deficiency anemia, unspecified; I10 Essential (primary) hypertension; F17.210 Nicotine dependence, cigarettes, uncomplicated; E78.5 Hyperlipidemia, unspecified; Z96.652 Presence of left artificial knee joint; Z79.82 Long term (current) use of aspirin; Z79.899 Other long term (current) drug therapy; Z88.0 Allergy status to penicillin; Z91.048 Other nonmedicinal substance allergy status

== ENCOUNTER → 2016-09-03 | Outpatient (REF) | payer MEDICARE, OTHER ==
[~2016-09-03] MED LIST changes: -BUPR1TAB17 PO; +BUPR1TAB53 PO; -COUM2.5T11 PO; +COUM2.5T17 PO; +PERC5TAB12 PO; -ULTR50TA PO; +ULTR50TA8 PO
[2016-09-03 12:31] LABS: INR 2.23
== END ==
LOC: M LABDRAW1 11:14
PROVIDERS: ATTEND Orthopaedic Surgery
DX: Z79.01 Long term (current) use of anticoagulants (principal)
CPT/HCPCS: 36415; 85610; G0463

== ENCOUNTER → 2017-01-14 | Outpatient (REF) | payer MEDICARE ==
[2017-01-15 11:49] LABS: BASO # 0.1 10^3/uL (0.0-0.2); BASO % 0.8 % (0.0-1.0); EOS # 0.5 10^3/uL (0.0-0.50); EOS % 5.8 % (0.0-3.0); IMMATURE GRANULOCYTE % 0.3 % (0-0); LYMPH # 2.1 10^3/uL (1.5-4.5); LYMPH % 26.9 % (24.0-44.0); MEAN CORPUSCULAR HEMOGLOBIN 30.7 pg (27.0-33.0); MEAN CORPUSCULAR HGB CONC 32.5 g/dl (32.0-36.5); MEAN CORPUSCULAR VOLUME 94.3 fl (80.0-96.0); MONO # 0.5 10^3/uL (0.0-0.8); MONO % 6.9 % (0.0-5.0); NEUTROPHILS # 4.6 10^3/uL (1.8-7.7); NEUTROPHILS % 59.3 % (36.0-66.0); PLATELET COUNT, AUTOMATED 240 10^3/uL (150-450); RED CELL DISTRIBUTION WIDTH 13.4 % (11.5-14.5); WHITE BLOOD COUNT 7.8 10^3/uL (4.0-10.0)
[2017-01-15 12:16] LABS: ALBUMIN 3.7 GM/DL (3.2-5.2); ALBUMIN/GLOBULIN RATIO 1.32 (1.00-1.93); ALKALINE PHOSPHATASE 103 U/L (45-117); ALT/SGPT 32 U/L (12-78); ANION GAP 7 MEQ/L (8-16); AST/SGOT 16 U/L (7-37); BILIRUBIN,TOTAL 0.6 MG/DL (0.2-1.0); BLOOD UREA NITROGEN 14 MG/DL (7-18); CARBON DIOXIDE LEVEL 31 MEQ/L (21-32); CHLORIDE LEVEL 104 MEQ/L (98-107); FREE T4 0.98 NG/DL (0.76-1.46); GLOMERULAR FILTRATION RATE > 60.0 (>39); GLUCOSE, FASTING 91 MG/DL (83-110); POTASSIUM SERUM 4.3 MEQ/L (3.5-5.1); SODIUM LEVEL 142 MEQ/L (136-145); TOTAL PROTEIN 6.5 GM/DL (6.4-8.2)
== END ==
LOC: M SFHCCLAY 14:42
PROVIDERS: ATTEND Family Medicine
DX: I48.0 Paroxysmal atrial fibrillation (principal); R53.83 Other fatigue
CPT/HCPCS: 80053; 83735; 84439; 84443; 85025; 93005; G0463

== ENCOUNTER → 2017-04-29 | Outpatient (REF) | payer MEDICARE, OTHER | LOC: M SFHCCLAY 14:27 | DX: Z11.59 Encounter for screening for other viral diseases (principal); I63.9 Cerebral infarction, unspecified; I48.0 Paroxysmal atrial fibrillation; I10 Essential (primary) hypertension; E78.5 Hyperlipidemia, unspecified; D50.9 Iron deficiency anemia, unspecified; Z82.0 Family history of epilepsy and other diseases of the nervous system | CPT/HCPCS: 36415; G0472 ==

== ENCOUNTER → 2017-07-01 | Outpatient (REF) | payer MEDICARE, OTHER ==
[2017-07-01 18:42] LABS: BASO % 0.6 % (0.0-1.0); EOS # 0.2 10^3/uL (0.0-0.50); EOS % 2.2 % (0.0-3.0); HEMOGLOBIN 14.7 g/dl (12.0-15.5); IMMATURE GRANULOCYTE % 0.3 % (0-3.0); LYMPH # 1.4 10^3/uL (1.5-4.5); LYMPH % 20.5 % (24.0-44.0); MEAN CORPUSCULAR HEMOGLOBIN 31.2 pg (27.0-33.0); MEAN CORPUSCULAR HGB CONC 32.7 g/dl (32.0-36.5); MEAN CORPUSCULAR VOLUME 95.5 fl (80.0-96.0); MONO # 0.4 10^3/uL (0.0-0.8); MONO % 5.7 % (0.0-5.0); NEUTROPHILS # 4.9 10^3/uL (1.8-7.7); NEUTROPHILS % 70.7 % (36.0-66.0); PLATELET COUNT, AUTOMATED 229 10^3/uL (150-450); RED BLOOD COUNT 4.71 10^6/uL (4.00-5.40); RED CELL DISTRIBUTION WIDTH 12.6 % (11.5-14.5); WHITE BLOOD COUNT 6.9 10^3/uL (4.0-10.0)
[2017-07-01 19:56] LABS: ALBUMIN 3.6 GM/DL (3.2-5.2); ALBUMIN/GLOBULIN RATIO 1.16 (1.00-1.93); ALKALINE PHOSPHATASE 109 U/L (45-117); ALT/SGPT 34 U/L (12-78); ANION GAP 4 MEQ/L (8-16); AST/SGOT 22 U/L (7-37); BLOOD UREA NITROGEN 10 MG/DL (7-18); CALCIUM LEVEL 8.6 MG/DL (8.8-10.2); CARBON DIOXIDE LEVEL 31 MEQ/L (21-32); CHLORIDE LEVEL 108 MEQ/L (98-107); CHOLESTEROL LEVEL 162 MG/DL (<200); CHOLESTEROL RISK RATIO 2.281 (<5); CREATININE FOR GFR 0.59 MG/DL (0.55-1.30); FREE T4 1.06 NG/DL (0.76-1.46); GLOMERULAR FILTRATION RATE > 60.0 (>39); GLUCOSE, FASTING 105 MG/DL (70-100); HDL CHOLESTEROL 71 MG/DL (>40); NON-HDL-C 91 MG/DL; SODIUM LEVEL 143 MEQ/L (136-145); THYROID STIMULATING HORMONE 0.862 uIU/ML (0.358-3.740); TOTAL PROTEIN 6.7 GM/DL (6.4-8.2); TRIGLYCERIDES LEVEL 90 MG/DL (<150)
== END ==
LOC: M SFHCCLAY 11:52
DX: D50.9 Iron deficiency anemia, unspecified (principal); E78.2 Mixed hyperlipidemia; I48.0 Paroxysmal atrial fibrillation
CPT/HCPCS: 84443

== ENCOUNTER → 2018-05-05 | Outpatient (REF) | payer MEDICARE, OTHER ==
[~2018-05-05] MED LIST changes: +MILK120011 PO; -MILKSUS PO
[2018-05-05 17:24] LABS: BASO # 0.1 10^3/uL (0.0-0.2); BASO % 0.8 % (0.0-1.0); EOS # 0.2 10^3/uL (0.0-0.50); EOS % 2.6 % (0.0-3.0); HEMATOCRIT 46.4 % (36.0-47.0); HEMOGLOBIN 15.3 g/dl (12.0-15.5); LYMPH # 1.6 10^3/uL (1.5-4.5); LYMPH % 18.4 % (24.0-44.0); MEAN CORPUSCULAR HEMOGLOBIN 31.7 pg (27.0-33.0); MEAN CORPUSCULAR VOLUME 96.3 fl (80.0-96.0); MONO # 0.5 10^3/uL (0.0-0.8); MONO % 5.6 % (0.0-5.0); NEUTROPHILS # 6.1 10^3/uL (1.8-7.7); NEUTROPHILS % 72.4 % (36.0-66.0); PLATELET COUNT, AUTOMATED 267 10^3/uL (150-450); RED BLOOD COUNT 4.82 10^6/uL (4.00-5.40); WHITE BLOOD COUNT 8.5 10^3/uL (4.0-10.0)
[2018-05-05 17:36] LABS: ALBUMIN 3.9 GM/DL (3.2-5.2); ALT/SGPT 40 U/L (12-78); BILIRUBIN,TOTAL 0.9 MG/DL (0.2-1.0); BLOOD UREA NITROGEN 10 MG/DL (7-18); CALCIUM LEVEL 8.7 MG/DL (8.8-10.2); CARBON DIOXIDE LEVEL 33 MEQ/L (21-32); CHLORIDE LEVEL 104 MEQ/L (98-107); CHOLESTEROL LEVEL 194 MG/DL (<200); CHOLESTEROL RISK RATIO 2.487 (<5); CREATININE FOR GFR 0.66 MG/DL (0.55-1.30); GLOMERULAR FILTRATION RATE > 60.0 (>39); GLUCOSE, FASTING 101 MG/DL (70-100); HDL CHOLESTEROL 78 MG/DL (>40); LDL CHOLESTEROL 82 MG/DL (<100); MAGNESIUM LEVEL 2.3 MG/DL (1.8-2.4); NON-HDL-C 116 MG/DL; POTASSIUM SERUM 3.9 MEQ/L (3.5-5.1); SODIUM LEVEL 141 MEQ/L (136-145); TOTAL PROTEIN 6.9 GM/DL (6.4-8.2); TRIGLYCERIDES LEVEL 170 MG/DL (<150)
== END ==
LOC: M SFHCCLAY 10:42
PROVIDERS: ATTEND Family Medicine
DX: D50.9 Iron deficiency anemia, unspecified (principal); I48.0 Paroxysmal atrial fibrillation; E78.2 Mixed hyperlipidemia; Z79.01 Long term (current) use of anticoagulants